=== PATIENT | female | born 1970 | race Caucasian/White ===

== ENCOUNTER 2018-08-31 18:04 | Emergency (ER) | payer OTHER, MEDICAID ==
[~2018-08-31] VITALS: Ht 157.5 cm; Wt 90.7 kg
[~2018-08-31 18:04] MED LIST: CLON2TAB6; DULO20CA; HYDR500T13; OMEP20TA44; PRO10T; TEMA7.5C11
[2018-08-31 20:12] LABS: Basophils # (auto) 0.1 uL; Basophils % (auto) 0.6 % (0.0-2.0); Eosinophils # (auto) 0.2 uL; Eosinophils % (auto) 1.6 % (0.0-7.0); Hematocrit 45.3 % (36.0-46.0); Hemoglobin 15.4 g/dL (12.2-16.2); Lymphocytes # (auto) 4.8 uL; Lymphocytes % (auto) 36.7 % (10.0-50.0); Mean Corpuscular Hemoglobin 31.3 pg (28.0-32.0); Monocytes # (auto) 1.4 uL; Monocytes % (auto) 10.8 % (0.0-12.0); Neutrophils # (auto) 6.6 uL; Neutrophils % (auto) 50.3 % (37.0-80.0); Nucleated Red Blood Cells % 0.1 %; Platelet Count (auto) 343 10^3/uL (140-450); Red Blood Cells 4.92 10^6/uL (4.0-5.20); Red Cell Distribution Width 13.2 % (11.8-14.3)
[2018-08-31 20:29] LABS: Albumin 4.2 g/dL (3.4-5.0); Anion Gap 11 (5-15); Blood Urea Nitrogen 15 mg/dL (7-18); Calcium 8.8 mg/dL (8.5-10.1); Carbon Dioxide 20 mmol/L (21-32); Chloride 111 mmol/L (98-107); Glucose 137 mg/dL (74-106); Salicylate 8.7 mg/dL (2.8-20.0); Sodium 142 mmol/L (136-145)
[2018-08-31 20:31] LABS: Alanine Aminotransferase 18 U/L (13-56); Aspartate Aminotransferase 12 U/L (15-37); Blood Alcohol < 3.0 mg/dL (0-5); GFR African American 87 mL/min; GFR Non-African American 72 mL/min
[2018-08-31 20:34] LABS: Alkaline Phosphatase 97 U/L (45-117); Bilirubin, Total 1.3 mg/dL (0.2-1.0); Total Protein 8.4 g/dL (6.4-8.2)
[2018-08-31 20:42] LABS: Potassium 2.9 mmol/L (3.5-5.1)
[2018-08-31 20:49] LABS: Acetaminophen < 2.0 ug/mL (10-30)
[2018-08-31] MEDS ORDERED: POTASSIUM CHL 20 Meq TABLET PO ONE (21:00)
[2018-08-31] MEDS ORDERED: POTASSIUM CHL 20MEQ/100ML 100 ML IV ONE (21:15)
[2018-09-01] MEDS ORDERED: clonazePAM 0.5 MG TAB PO ONE ×3 (01:30→10:45)
[2018-09-01 01:37] LABS: BUN/Creatinine Ratio 19.2; Calcium 8.6 mg/dL (8.5-10.1)
[2018-09-01 01:40] LABS: Bilirubin, Total 1.3 mg/dL (0.2-1.0); Total Protein 8.2 g/dL (6.4-8.2)
[2018-09-01] MEDS ORDERED: SODIUM CHLORIDE 0.9% 1,000 ML IV ONE (02:45)
[2018-09-01 07:18] LABS: Albumin 3.5 g/dL (3.4-5.0); BUN/Creatinine Ratio 15.6; Calcium 8.1 mg/dL (8.5-10.1); Potassium 3.9 mmol/L (3.5-5.1)
[2018-09-01 07:21] LABS: Bilirubin, Total 0.9 mg/dL (0.2-1.0); Total Protein 7.4 g/dL (6.4-8.2)
[2018-09-01 07:31] LABS: Alcohol, Urine < 3.0 mg/dL (0-5); Amphetamine Screen, Urine NEGATIVE (NEGATIVE); Barbiturate Scree,Urine NEGATIVE (NEGATIVE); Benzodiazephine Screen, Urine POSITIVE (NEGATIVE); Cannabinoid Screen, Urine POSITIVE (NEGATIVE); Cocaine Screen, Urine NEGATIVE (NEGATIVE); Opiate Scree,Urine NEGATIVE (NEGATIVE); Phencyclidine Screen, Urine NEGATIVE (NEGATIVE)
[2018-09-01 07:48] LABS: Urine Bacteria MOD /hpf (None Seen); Urine Blood Negative /uL (Negative); Urine Budding Yeast OCCASIONAL /hpf (None Seen); Urine Specific Gravity 1.037 (1.001-1.035); Urine WBC 13 /hpf (0 - 5)
[2018-09-01] MEDS ORDERED: ACETAMINOPHEN 325 MG TAB PO ONE (10:45)
[2018-09-01 11:16] VITALS: BP 115/76
== END 2018-09-01 13:11 | disposition home or self-care (01) ==
LOC: EDBD 18:04 → ER 18:09
DX: T42.8X2A Poisoning by antiparkinsonism drugs and other central muscle-tone depressants, intentional self-harm, initial encounter (principal); S61.512A Laceration without foreign body of left wrist, initial encounter; S61.511A Laceration without foreign body of right wrist, initial encounter; E87.6 Hypokalemia; F32.9 Major depressive disorder, single episode, unspecified; F17.210 Nicotine dependence, cigarettes, uncomplicated; F12.10 Cannabis abuse, uncomplicated; E78.5 Hyperlipidemia, unspecified; W45.8XXA Other foreign body or object entering through skin, initial encounter; Y93.89 Activity, other specified; Y92.89 Other specified places as the place of occurrence of the external cause; Y99.8 Other external cause status
CPT/HCPCS: 36415; 80053; 80307; 80320; 80329; 81001; 85025; 93005; 94761; 96365; 96366; 99284; J3480; J7030

== ENCOUNTER 2019-11-03 02:20 | Inpatient (IN) | payer OTHER, MEDICAID ==
[~2019-11-03] VITALS: Ht 162.6 cm; Wt 113.1 kg
[~2019-11-03 02:20] MED LIST changes: +CLON-707; -CLON2TAB6
[2019-11-03] MEDS ORDERED: ALBUTEROL SULF 2.5 MG/0.5ML(0.5%) NEB SOLN HHN ONE (04:00)
[2019-11-03] MEDS ORDERED: IPRATROPIUM BROM 0.5 MG/2.5ML INH SOL NEB ONE (04:00)
[2019-11-03] MEDS ORDERED: IPRATROPIUM BROM 0.5 MG/2.5ML INH SOL HHN ONE (04:00)
[2019-11-03] MEDS ORDERED: ALBUTEROL SULF 2.5 MG/0.5ML(0.5%) NEB SOLN NEB ONE (04:00)
[2019-11-03] MEDS ORDERED: methylPREDNISolone SOD SUCC 125 MG/2 ML VL IM ONE ×2 (04:00)
[2019-11-03] MEDS ORDERED: IBUPROFEN 800 MG TAB PO ONE ×2 (05:07→05:15)
[2019-11-03] MEDS ORDERED: LOPERAMIDE HCL 2 MG CAP PO ONE (05:15)
[2019-11-03 05:57] LABS: Basophils # (auto) 0.1 uL; Basophils % (auto) 0.7 % (0.0-2.0); Eosinophils # (auto) 0.2 uL; Eosinophils % (auto) 1.4 % (0.0-7.0); Hematocrit 42.9 % (36.0-46.0); Hemoglobin 14.1 g/dL (12.2-16.2); Lymphocytes # (auto) 4.4 uL; Lymphocytes % (auto) 36.8 % (10.0-50.0); Mean Corpuscular Hemoglobin 29.7 pg (28.0-32.0); Mean Corpuscular Volume 90.2 fL (80.0-100.0); Monocytes # (auto) 1.1 uL; Monocytes % (auto) 9.3 % (0.0-12.0); Neutrophils # (auto) 6.3 uL; Neutrophils % (auto) 51.8 % (37.0-80.0); Nucleated Red Blood Cells % 0.2 %; Platelet Count (auto) 394 10^3/uL (140-450); Red Blood Cells 4.76 10^6/uL (4.0-5.20); White Blood Cell 12.1 10^3/uL (4.4-10.8)
[2019-11-03 06:22] LABS: Albumin 3.5 g/dL (3.4-5.0); Anion Gap 8 (5-15); Blood Urea Nitrogen 10 mg/dL (7-18); Calcium 9.2 mg/dL (8.5-10.1); Carbon Dioxide 20 mmol/L (21-32); Chloride 112 mmol/L (98-107); Glucose 138 mg/dL (74-106); Sodium 140 mmol/L (136-145)
[2019-11-03 06:23] LABS: Lactic Acid w/Reflex 2.4 mmol/L (0.4-2.0)
[2019-11-03 06:27] LABS: Alanine Aminotransferase 14 U/L (13-56); Alkaline Phosphatase 73 U/L (45-117); Aspartate Aminotransferase 11 U/L (15-37); Bilirubin, Total 0.4 mg/dL (0.2-1.0); GFR African American 84 mL/min; GFR Non-African American 69 mL/min; Total Protein 8.2 g/dL (6.4-8.2)
[2019-11-03 06:31] LABS: Potassium 2.9 mmol/L (3.5-5.1)
[2019-11-03] MEDS ORDERED: POTASSIUM EFFERVESENT TAB 25 MEQ PO ONE (06:45)
[2019-11-03] MEDS ORDERED: SODIUM CHLORIDE 0.9% 1,000 ML IV ONE (06:46)
[2019-11-03] MEDS ORDERED: POTASSIUM CHL 20MEQ/100ML 100 ML IV ONE (07:00)
[2019-11-03] MEDS ORDERED: VANCOMYCIN PER PHARMACY 1,000 MG IV SCH (07:00)
[2019-11-03] MEDS ORDERED: IOHEXOL 350 MG/ML 100ML IJ ONE (07:12)
[2019-11-03] MEDS ORDERED: HYDROcodone-ACET 5/325MG TAB PO ONE (08:45)
[2019-11-03] MEDS ORDERED: MORPHINE SULF INJ 2 MG/ML SYRINGE 1ML IV PRN ×2 (09:30)
[2019-11-03] MEDS ORDERED: ACETAMINOPHEN 500 MG TAB PO PRN (09:30)
[2019-11-03] MEDS ORDERED: METHOCARBAMOL 500 MG TAB PO PRN (09:30)
[2019-11-03] MEDS ORDERED: NITROGLYCERIN 0.4 MG SL TAB SL PRN (09:30)
[2019-11-03] MEDS ORDERED: ONDANSETRON HCL 4 MG/2 ML VIAL IV PRN (09:30)
[2019-11-03] MEDS: SOD CHL 0.9%/ KCL 20MEQ 1,000 ML IV SCH ×2 (10:00→19:30)
[2019-11-03 10:13] LABS: Cholesterol 120 mg/dL (< 200)
[2019-11-03 10:15] LABS: HDL Cholesterol 17 mg/dL (40-59); LDL Cholesterol 66 mg/dL (< 100); Triglycerides 295 mg/dL (< 150)
[2019-11-03 10:24] VITALS: BP 121/62
[2019-11-03] MEDS: VENLAFAXINE HCL 37.5mg XR cap PO SCH (10:27)
[2019-11-03] MEDS: FAMOTIDINE 20 MG TAB PO SCH (10:27)
[2019-11-03 10:56] VITALS: BP 129/72
--- NOTE | 2019-11-03 11:00 | NUR ---
Telemetry admit from ER MARCIAL GUTIERREZ admitted to Telemetry unit after SBAR received. Patient oriented to VIRGINIA GRANADO, primary RN, unit, room, bed, and unit policies regarding patient care and visiting hours. Patient now on continuous telemetry monitoring, tele box # 41 and telemetry reading on arrival to unit is . Patient placed on bedside oxygen, weighed by bed scale and encouraged to call if they need something. All questions and concerns addressed, patient verbalized understanding.
--- NOTE | 2019-11-03 11:05 | NUR ---
FLU A AND B SENT TO LAB.
--- NOTE | 2019-11-03 11:30 | NUR ---
Patient has all her home meds in her bag, explained to the patient that all meds have to leave at the pharmacy per protocol. She said her father is going to visit her today and will take them home. Again emphasized to the patient that she cannot leave meds here, she verbalized understanding.
[2019-11-03] MEDS: BUDESONIDE (INHALATION) 0.5 MG/2 ML NEB NEB SCH ×2 (11:36→18:38)
[2019-11-03] MEDS: ALBUTEROL SULF 2.5 MG/0.5ML(0.5%) NEB SOLN NEB SCH ×2 (11:36→18:38)
[2019-11-03] MEDS: IPRATROPIUM BROM 0.5 MG/2.5ML INH SOL NEB SCH ×2 (11:36→18:38)
[2019-11-03] MEDS ORDERED: PRO10T PO (11:58)
[2019-11-03] MEDS ORDERED: CETI10TA80 PO (11:58)
[2019-11-03] MEDS ORDERED: CLON0.1T PO (11:58)
[2019-11-03] MEDS ORDERED: IBUP800T24 PO (11:58)
[2019-11-03] MEDS ORDERED: HYDR-4833 PO (11:58)
[2019-11-03] MEDS ORDERED: METH750T3 PO (11:58)
[2019-11-03] MEDS ORDERED: VENL75TA PO (11:58)
[2019-11-03] MEDS ORDERED: ATOR20TA PO (11:58)
[2019-11-03] MEDS ORDERED: OME20T PO (11:58)
[2019-11-03] MEDS: levoFLOXacin 500MG 100 ML IV SCH (12:01)
[2019-11-03] MEDS ORDERED: ERGO1CAP23 PO (12:16)
[2019-11-03] MEDS ORDERED: CLON1TAB10 PO (12:42)
--- NOTE | 2019-11-03 12:54 | NUR ---
Patient wants all her home meds, spoke to Jackson BERGER, received new orders, noted and carried it out.
[2019-11-03 13:00] VITALS: BP 142/82
[2019-11-03] MEDS ORDERED: clonazePAM 0.5 MG TAB PO ONE (13:00)
[2019-11-03] MEDS ORDERED: cloNIDine HCL 0.1 MG TAB PO ONE (13:00)
[2019-11-03] MEDS: HYDROcodone-ACET 5/325MG TAB PO PRN ×2 (14:13→20:53)
[2019-11-03] MEDS: PIPERACILLIN-TAZOB 3.375GM 100 ML IV SCH ×2 (14:16→18:07)
[2019-11-03 14:22] LABS: Urine Bacteria FEW /hpf (None Seen); Urine Blood Negative /uL (Negative); Urine Specific Gravity 1.033 (1.001-1.035); Urine WBC 1 /hpf (0 - 5)
[2019-11-03] MEDS: metroNIDAZOLE 500MG/100ML 100 ML IV SCH ×2 (16:22→23:17)
[2019-11-03 17:00] VITALS: BP 144/82
--- NOTE | 2019-11-03 19:22 | NUR ---
Opening Shift Note Received report and assumed care of patient. Patient is awake and alert. No signs or symptoms of distress noted. Family at bedside. Instructed patient on plan of care and to call for assistance as needed. Will continue to monitor.
--- NOTE | 2019-11-03 19:36 | NUR ---
IV removal/insertion Patient discontinued 20g IV to the left forearm. Catheter tip fully intact. Pressure dressing applied to site. NOTE: Inserted 22g IV to the right wrist. Patient tolerated well.
[2019-11-03] MEDS: clonazePAM 0.5 MG TAB PO SCH (22:00)
[2019-11-03 22:41] VITALS: BP 156/86
[2019-11-03] MEDS: ATORVASTATIN 20 MG TAB PO SCH (23:18)
[2019-11-04] MEDS: PIPERACILLIN-TAZOB 3.375GM 100 ML IV SCH ×2 (01:01→07:28)
[2019-11-04 01:06] VITALS: BP 149/86
[2019-11-04 05:18] VITALS: BP_SYST 110; BP_SYST 137; BP_DIAS 67; BP_DIAS 85
[2019-11-04] MEDS: metroNIDAZOLE 500MG/100ML 100 ML IV SCH ×3 (05:26→22:18)
[2019-11-04] MEDS: SOD CHL 0.9%/ KCL 20MEQ 1,000 ML IV SCH (05:28)
[2019-11-04] MEDS: ALBUTEROL SULF 2.5 MG/0.5ML(0.5%) NEB SOLN NEB SCH ×4 (07:50→23:18)
[2019-11-04] MEDS: IPRATROPIUM BROM 0.5 MG/2.5ML INH SOL NEB SCH ×4 (07:50→23:18)
[2019-11-04] MEDS: BUDESONIDE (INHALATION) 0.5 MG/2 ML NEB NEB SCH ×2 (07:51→23:18)
[2019-11-04 09:00] VITALS: BP 149/77
[2019-11-04] MEDS: levoFLOXacin 500MG 100 ML IV SCH (09:16)
[2019-11-04] MEDS: FAMOTIDINE 20 MG TAB PO SCH (09:16)
[2019-11-04] MEDS: clonazePAM 0.5 MG TAB PO SCH ×2 (09:16→22:00)
[2019-11-04] MEDS: VENLAFAXINE HCL 37.5mg XR cap PO SCH (09:16)
[2019-11-04] MEDS: cloNIDine HCL 0.1 MG TAB PO SCH (09:17)
[2019-11-04] MEDS: HYDROcodone-ACET 5/325MG TAB PO PRN ×2 (09:17→22:26)
[2019-11-04 09:55] LABS: Basophils # (auto) 0 uL; Basophils % (auto) 0.2 % (0.0-2.0); Eosinophils # (auto) 0 uL; Eosinophils % (auto) 0.1 % (0.0-7.0); Hematocrit 37.3 % (36.0-46.0); Hemoglobin 12.5 g/dL (12.2-16.2); Lymphocytes # (auto) 1.6 uL; Lymphocytes % (auto) 14.7 % (10.0-50.0); Mean Corpuscular Hemoglobin 30.3 pg (28.0-32.0); Mean Corpuscular Hgb Conc. 33.5 g/dL (32.0-36.0); Mean Corpuscular Volume 90.3 fL (80.0-100.0); Monocytes # (auto) 0.9 uL; Monocytes % (auto) 8.3 % (0.0-12.0); Neutrophils # (auto) 8.4 uL; Neutrophils % (auto) 76.7 % (37.0-80.0); Platelet Count (auto) 381 10^3/uL (140-450); Red Blood Cells 4.13 10^6/uL (4.0-5.20)
[2019-11-04 10:14] LABS: BUN/Creatinine Ratio 16.7; Calcium 8.6 mg/dL (8.5-10.1); Potassium 3.9 mmol/L (3.5-5.1)
[2019-11-04] MEDS ORDERED: NICOTINE 14 MG/24HR TOPICAL PATCH TD ONE (10:30)
[2019-11-04] MEDS ORDERED: FUROSEMIDE 20 MG/2 ML VIAL IV ONE (10:30)
[2019-11-04 12:30] VITALS: BP 135/88
[2019-11-04] MEDS: methylPREDNISolone SOD SUCC 40 MG/ML VL IV SCH ×2 (13:52→22:18)
[2019-11-04 16:45] VITALS: BP 150/73
--- NOTE | 2019-11-04 19:34 | NUR ---
Opening Shift Note Received report and assumed care of patient. Patient is awake and alert. No signs or symptoms of distress noted, patient currently denies pain. Instructed patient on plan of care and to call for assistance as needed. Will continue to monitor.
--- NOTE | 2019-11-04 20:02 | NUR ---
IV removal/insertion 22g IV to the Right wrist reddened. Discontinued IV with clean technique, catheter tip fully intact. Pressure dressing applied to site. NOTE: Inserted 22g IV to the Left forearm. Patient tolerated procedure well.
[2019-11-04 22:00] VITALS: BP 142/69
[2019-11-04] MEDS: FUROSEMIDE 20 MG/2 ML VIAL IV SCH (22:00)
[2019-11-04] MEDS: ATORVASTATIN 20 MG TAB PO SCH (22:18)
[2019-11-05] MEDS: ALBUTEROL SULF 2.5 MG/0.5ML(0.5%) NEB SOLN NEB SCH ×6 (02:34→22:17)
[2019-11-05] MEDS: IPRATROPIUM BROM 0.5 MG/2.5ML INH SOL NEB SCH ×6 (02:34→22:17)
--- NOTE | 2019-11-05 02:34 | NUR ---
RT NOTE PT ASKED NOT TO BE WOKEN FOR THIS SCHEDULED TX IF SLEEPING. PT IS SLEEPING. TX HELD PER PT REQUEST. PT AWARE TO HAVE RT PAGED IF TX NEEDED WHEN THEY WAKE. RT NAME AND PAGER NUMBER ON PT BOARD.
--- NOTE | 2019-11-05 02:49 | NUR ---
Bradycardia Patient heart rate bradycardic in 40s. Patient responsive, awakens to voice and denies symptoms. Paged Hospitalist. No new orders at this time. Will continue to monitor.
[2019-11-05 05:00] VITALS: BP 155/86
[2019-11-05] MEDS: metroNIDAZOLE 500MG/100ML 100 ML IV SCH (05:45)
[2019-11-05] MEDS: methylPREDNISolone SOD SUCC 40 MG/ML VL IV SCH ×2 (05:45→22:51)
--- NOTE | 2019-11-05 06:30 | NUR ---
PT. REFUSED MN. TX. AT THIS TIME. PT. STATES THAT SHE IS EXHAUSTED AND DIDN'T SLEEP WELL LAST NIGHT. NO RESP. DISTRESS NOTED, BS. ARE DIMINISHED BILAT., HR=46,RR=18,SP02=96% ON 2LPM NC. PT. STATES SHE WILL TAKE NEXT SCHEDULED TX.. NO RESP. DISTRESS OR SOB NOTED. NOC RN. INFORMED OF PT'S REFUSAL.
[2019-11-05 09:00] VITALS: BP 136/90
--- NOTE | 2019-11-05 09:03 | NUR ---
Opening Shift Note Assumed care of patient, awake and alert. Respiratory even and unlabored. No S/S of distress/SOB or pain. Skin is warm and dry to touch. Instructed on POC and to call for assist PRN, will continue to monitor for changes Q1hr and PRN.
[2019-11-05 09:34] LABS: Basophils # (auto) 0.1 uL; Basophils % (auto) 0.9 % (0.0-2.0); Eosinophils # (auto) 0 uL; Hematocrit 43.8 % (36.0-46.0); Hemoglobin 14.5 g/dL (12.2-16.2); Lymphocytes % (auto) 9.4 % (10.0-50.0); Mean Corpuscular Hemoglobin 30.2 pg (28.0-32.0); Mean Corpuscular Volume 91.6 fL (80.0-100.0); Monocytes # (auto) 0.2 uL; Monocytes % (auto) 2.1 % (0.0-12.0); Neutrophils # (auto) 9.7 uL; Neutrophils % (auto) 87.6 % (37.0-80.0); Platelet Count (auto) 410 10^3/uL (140-450); Red Blood Cells 4.78 10^6/uL (4.0-5.20); Red Cell Distribution Width 14.3 % (11.8-14.3); White Blood Cell 11.1 10^3/uL (4.4-10.8)
[2019-11-05] MEDS: levoFLOXacin 500MG 100 ML IV SCH (09:34)
[2019-11-05] MEDS: FAMOTIDINE 20 MG TAB PO SCH (09:37)
[2019-11-05] MEDS: FUROSEMIDE 20 MG/2 ML VIAL IV SCH (09:38)
[2019-11-05] MEDS: VENLAFAXINE HCL 37.5mg XR cap PO SCH (09:38)
[2019-11-05] MEDS: cloNIDine HCL 0.1 MG TAB PO SCH (09:38)
[2019-11-05] MEDS: clonazePAM 0.5 MG TAB PO SCH ×2 (09:38→22:51)
[2019-11-05 09:39] LABS: INR 1.02 (0.9-1.15); Partial Thromboplastin Time 28.2 sec (23.64-32.05)
[2019-11-05] MEDS: NICOTINE 14 MG/24HR TOPICAL PATCH TD SCH (09:39)
[2019-11-05 09:40] LABS: Albumin 3.6 g/dL (3.4-5.0); Calcium 9.7 mg/dL (8.5-10.1); Magnesium 2.7 mg/dL (1.6-2.6); Potassium 4.5 mmol/L (3.5-5.1)
[2019-11-05 09:44] LABS: BUN/Creatinine Ratio 21.8; Bilirubin, Total 0.3 mg/dL (0.2-1.0); Phosphorus 2.8 mg/dL (2.5-4.90); Total Protein 8.2 g/dL (6.4-8.2)
[2019-11-05] MEDS: HYDROcodone-ACET 5/325MG TAB PO PRN ×3 (09:51→23:47)
[2019-11-05] MEDS ORDERED: FUROSEMIDE 20 MG/2 ML VIAL IV SCH (10:00)
[2019-11-05] MEDS ORDERED: ENOXAPARIN SOD 40 MG/0.4 ML SYRINGE SC SCH (10:00)
[2019-11-05] MEDS: BUDESONIDE (INHALATION) 0.5 MG/2 ML NEB NEB SCH ×2 (10:11→18:55)
[2019-11-05 12:30] VITALS: BP 105/62
--- NOTE | 2019-11-05 13:45 | NUR ---
Dr. Frias made aware of patient's HR down to 48, asymptomatic.
[2019-11-05 17:00] VITALS: BP 122/73
--- NOTE | 2019-11-05 19:05 | NUR ---
OPENING NOTE- NOC SHIFT PATIENT IS ALERT AND ORIENTED X4. NO S/SX OF DISTRESS OR SOB. PATIENT IS ON ROOM AIR SAT O2 IS 96%. DISCUSSED POC WITH PATIENT AND INSTRUCTED PATIENT TO CALL PRN. BED IS LOCKED AT LOWEST, CALL LIGHT WITHIN REACH, BEDSIDE TABLE WITHIN REACH, BED RAILS UP X2 AND HEAD OF BED IS UP>30 DEGREES FOR SAFETY PRECAUTION. WILL CONTINUE TO MONITOR Q1H AND PRN.
[2019-11-05 21:59] VITALS: BP 134/90
[2019-11-05] MEDS: ATORVASTATIN 20 MG TAB PO SCH (22:51)
[2019-11-06] VITALS (7 sets, daily range): BP systolic 128–142; BP diastolic 60–97
--- NOTE | 2019-11-06 00:31 | NUR ---
CLOSING NOTE- 6 HR SHIFT NOC PATIENT IS COMFORTABLE IN BED. PATIENT COMPLAINED OF GENERALIZED BODY PAIN AND HEADACHE DURING THE SHIFT. PAIN MEDICATION WAS GIVEN. NO S/SX OF DISTRESS OR SOB. PATIENT ON ROOM AIR. WILL GIVE REPORT TO RELIEVING NURSE JAREK ARNOLD.
[2019-11-06] MEDS: ALBUTEROL SULF 2.5 MG/0.5ML(0.5%) NEB SOLN NEB SCH ×4 (02:00→14:50)
[2019-11-06] MEDS: IPRATROPIUM BROM 0.5 MG/2.5ML INH SOL NEB SCH ×4 (02:00→14:50)
--- NOTE | 2019-11-06 02:00 | NUR ---
PT REFUSED MN TX AT THIS TIME, WANTS TO SLEEP. NO SOB NOTED
--- NOTE | 2019-11-06 07:00 | NUR ---
Respiratory note: SCHEDULED MED NEB TX NOT GIVEN. PATIENT WAS AWAKE AND ALERT, COMPLAINING OF A STOMACH ACHE. NO RESP DISTRESS NOTED. RN AWARE AND AT BEDSIDE. HR 58, RR 18, SPO2 96% ON ROOM AIR. BS ARE CLEAR T/O. PATIENT STATED SHE WILL TAKE THE NEXT SCHEDULED TX.
--- NOTE | 2019-11-06 07:15 | NUR ---
PATIENT IS COMPLAINING OF HAVING A RUNNY BOWEL MOVEMENT . CLEO DUBOIS MD.
[2019-11-06] MEDS: methylPREDNISolone SOD SUCC 40 MG/ML VL IV SCH (08:34)
[2019-11-06] MEDS: cloNIDine HCL 0.1 MG TAB PO SCH (08:35)
[2019-11-06] MEDS: levoFLOXacin 500MG 100 ML IV SCH (08:35)
[2019-11-06] MEDS: clonazePAM 0.5 MG TAB PO SCH (08:36)
[2019-11-06] MEDS: FAMOTIDINE 20 MG TAB PO SCH (08:36)
[2019-11-06] MEDS: VENLAFAXINE HCL 37.5mg XR cap PO SCH (08:36)
[2019-11-06] MEDS: HYDROcodone-ACET 5/325MG TAB PO PRN (08:37)
[2019-11-06] MEDS: NICOTINE 14 MG/24HR TOPICAL PATCH TD SCH (08:39)
--- NOTE | 2019-11-06 09:24 | NUR ---
PATIENT C/O BURNING AT IV SITE. IV SITE IS INTACT. WILL CONTINUE TO MONITOR.
[2019-11-06] MEDS: BUDESONIDE (INHALATION) 0.5 MG/2 ML NEB NEB SCH (10:36)
--- NOTE | 2019-11-06 10:36 | NUR ---
Respiratory note: SCHEDULED MED NEB TX NOT GIVEN. PT WAS ASLEEP AND DID NOT WANT TX AT THIS TIME. NO RESP DISTRESS NOTED.
--- NOTE | 2019-11-06 14:14 | NUR ---
NUTRITION ASSESSMENT NOTES Please refer to link notes of nutrition screen form filed under the intervention section of the plan of care for further details. Est. Needs based on AdBW (69 kg): 1400 kcal to 1750 kcal (20-25 kcal/kgAdBW), 69 gms to 83 gms pro (1.0-1.2 gms/kgAdBW). Will continue to monitor pertinent labs and reassess nutrient need prn Thank you. Addendum: 11/06/19 at [address] Amended: Links added.
--- NOTE | 2019-11-06 16:50 | NUR ---
PATIENT IS REFUSING INCENTIVE SPIROMETRY. PATIENT EDUCATED ON IMPORTANCE OF IS ORDER. PATIENT STATES, "I DON'T WANT IT", " I WANT TO GO ".
--- NOTE | 2019-11-06 17:02 | NUR ---
Discharge instructions given as ordered. Encourage to follow up with PMD as instructed. All questions and concerns addressed. Patient verbalized understanding. Medication reconciliation form completed and copy given to patient. IV removed with catheter intact, pressure dressing applied. Patient ambulated to vehicle with all personal belongings, accompanied by staff and family member. No distress noted at time of departure.
== END 2019-11-06 17:00 | disposition home or self-care (01) | DRG 392 ==
LOC: EDBD 02:20 → ER 02:24 → TELE 02:25 → TELE-CENTR 10:52 → CENTRAL 11-05 14:17
PROVIDERS: ADMIT Nurse Practitioner Acute Care; ATTEND Internal Medicine
DX: K52.9 Noninfective gastroenteritis and colitis, unspecified (principal); J44.1 Chronic obstructive pulmonary disease with (acute) exacerbation; Z68.42 Body mass index [BMI] 45.0-49.9, adult; J44.0 Chronic obstructive pulmonary disease with (acute) lower respiratory infection; E87.6 Hypokalemia; E78.5 Hyperlipidemia, unspecified; F32.9 Major depressive disorder, single episode, unspecified; I10 Essential (primary) hypertension; E78.00 Pure hypercholesterolemia, unspecified; F17.210 Nicotine dependence, cigarettes, uncomplicated; K21.9 Gastro-esophageal reflux disease without esophagitis; M54.5 Low back pain; E66.01 Morbid (severe) obesity due to excess calories; F41.9 Anxiety disorder, unspecified; G89.29 Other chronic pain; Z90.49 Acquired absence of other specified parts of digestive tract
CPT/HCPCS: 36415; 36600; 71045; 71275; 74176; 80048; 80053; 80061; 81001; 82805; 83605; 83735; 83880; 84100; 84443; 84484; 85025; 85379; 85384; 85610; 85730; 87040; 87045; 87086; 87427; 87804; 93005; 94640; 96361; 96365; 96367; 96372; G0378; J1956; J2543; J3480; J3490

== ENCOUNTER → 2022-02-08 | Emergency (ER) | payer OTHER, MEDICAID ==
[~2022-02-08] VITALS: Ht 160 cm; Wt 113.4 kg
[~2022-02-08] MED LIST changes: +ATOR20TA PO; +CETI10TA2 PO; -CLON-707; +CLON-853 PO; +CLON0.1T PO; -DULO20CA; +ERGO1CAP23 PO; +HYDR-4833 PO; -HYDR500T13; +HYDROcodone-ACET 7.5/325MG TAB PO ONE; +OME20T PO; -OMEP20TA44; -PRO10T; -TEMA7.5C11; +VENL1TAB99 PO
[2022-02-08 14:41] VITALS: BP 144/83
== END | disposition home or self-care (01) ==
LOC: ER 13:59
DX: S52.502A Unspecified fracture of the lower end of left radius, initial encounter for closed fracture (principal); S52.602A Unspecified fracture of lower end of left ulna, initial encounter for closed fracture; S92.152A Displaced avulsion fracture (chip fracture) of left talus, initial encounter for closed fracture; E78.5 Hyperlipidemia, unspecified; I10 Essential (primary) hypertension; F17.210 Nicotine dependence, cigarettes, uncomplicated; F12.10 Cannabis abuse, uncomplicated; W10.8XXA Fall (on) (from) other stairs and steps, initial encounter; Y93.89 Activity, other specified; Y92.89 Other specified places as the place of occurrence of the external cause; Y99.8 Other external cause status
CPT/HCPCS: 29125; 73110; 73130; 73610; 73630

== ENCOUNTER 2024-09-01 23:15 | Inpatient (IN) | payer OTHER, MEDICAID ==
[~2024-09-01] VITALS: Ht 160 cm; Wt 96.3 kg
[2024-09-01] MEDS: SODIUM CHLORIDE 0.9% 1,000 ML IV ONE
[~2024-09-01 23:15] MED LIST changes: -HYDROcodone-ACET 7.5/325MG TAB PO ONE
[2024-09-02] VITALS (7 sets, daily range): BP systolic 112–149; BP diastolic 46–72; PULSE 50–70; RESP 14–20; TEMP 98–98.7; O2SAT 92–98
[2024-09-02 00:01] LABS: Basophils # (auto) 0.1 10 ^3/uL (0-0.2); Basophils % (auto) 0.4 % (0.0-2.0); Eosinophils # (auto) 0 10 ^3/uL (0-0.8); Hemoglobin 17.7 g/dL (12.2-16.2); Lymphocytes # (auto) 2.7 10 ^3/uL (0.4-5.4); Monocytes # (auto) 1.1 10 ^3/uL (0-1.3); Platelet Count (auto) 419 10^3/uL (140-450)
[2024-09-02 00:03] LABS: Hematocrit 51.8 % (36.0-46.0); Lymphocytes % (auto) 11.8 % (10.0-50.0); Mean Corpuscular Hemoglobin 30.6 pg (28.0-32.0); Mean Corpuscular Hgb Conc. 34.2 g/dL (32.0-36.0); Mean Corpuscular Volume 89.5 fL (80.0-100.0); Monocytes % (auto) 4.8 % (0.0-12.0); Neutrophils # (auto) 18.7 10 ^3/uL (1.6-8.6); Nucleated Red Blood Cells % 0.3 %; Red Blood Cells 5.79 10^6/uL (4.0-5.20); Red Cell Distribution Width 14.9 % (11.8-14.3); White Blood Cell 22.6 10^3/uL (4.4-10.8)
[2024-09-02] MEDS: ONDANSETRON HCL 4 MG/2 ML VIAL IV ONE (00:12)
[2024-09-02] MEDS: SODIUM CHLORIDE 0.9% 1,000 ML IV ONE (00:13)
[2024-09-02 00:15] LABS: INR 1.06 (0.9-1.15); Partial Thromboplastin Time 32.1 SEC (24.5-34.5); Prothrombin Time 11.2 sec (9.3-11.8)
--- NOTE | 2024-09-02 00:16 | ED.PDOC ---
History of Present Illness HPI Comments 54 y/o F, with a Hx of anxiety, depression, HLD, HTN, obesity, appendectomy, and polysubstance abuse, is BIBA for c/o chest and abdominal pain, shortness of breath, nausea, vomiting, and generalized bodyaches, today. Per EMS report, patient's father called on patient's behalf, due to patient, suddenly, endorsing symptoms, this evening following EtOH and marijuana intake, this evening. Patient was found on scene with all vitals stable and within normal limits, with exception of being hypotensive systolically in the 70's. Patient endorses on no medication use aside from Wellbutrin for her anxiety/depression. She denies having any palpitations, diarrhea, hematemesis, fever, chills, or other associated symptoms or modifiers at this time. Chief Complaint: Abdominal Pain Time Seen by MD: 23:35 Primary Care Provider: BAY Reviewed Notes: Nurses Notes, Ceramic Painter Notes, Medications, Allergies Allergies: Coded Allergies: NO KNOWN ALLERGIES (Unverified , 12/21/10) Home Meds Reported Medications Clonazepam (Clonazepam) 1 Mg Tab, 1 TAB PO BID, TAB 11/03/19 Ergocalciferol (VITAMIN D 27379 UNIT) 50,000 [place], [address] UNIT PO, CAP 11/03/19 Clonidine Hydrochloride (Clonidine Hcl) 0.1 Mg Tab, 0.3 MG PO DAILY, MG 11/03/19 Venlafaxine Hydrochloride (Venlafaxine Hcl) 75 Mg Tab, 1 TAB PO BID, TAB 11/03/19 Cetirizine Hcl (Kls Aller-Janak) 10 Mg Tab, 1 TAB PO DAILY, TAB 11/03/19 Atorvastatin Calcium (Lipitor) 20 Mg Tab, 1 TAB PO HS, TAB 1 Refill 11/03/19 Omeprazole (Omeprazole) 20 Mg Cap, 40 MG PO DAILY, CAP 11/03/19 Hydrocodone-Acetaminophen ([place] 5/325MG) 1 Tab Tb, 2 TAB PO Q6HP PRN for PAIN SCALE 1 THRU 6, TAB 11/03/19 Information Source: Patient, Emergency Med Personnel Mode of Arrival: EMS Past Medical History PAST MEDICAL HISTORY: Anxiety, Depression, High Lipids, HTN Past Medical History (Other): obesity Covid19 Surgical History: Appendectomy NUTTER UP History: Other (uterine tumor w/surgery) Family History Family History: Reviewed,noncontributory to illness Social History Smoker: Cigarettes Alcohol: Occasionally Drugs: Marijuana Lives In: Home All Other Systems: Reviewed and Negative (see HPI) Physical Exam General Appearance: No Apparent Distress, Obese, Other (alcohol breathe ) HEENT: Normal ENT Inspection, Pharynx Normal, TMs Normal, Other (severely dry oral mucosa) Neck: Full Range of Motion, Non-Tender, Normal, Normal Inspection Respiratory: Chest Non-Tender, Lungs Clear, No Accessory Muscle Use, No Respira tory Distress, Normal Breath Sounds Cardiovascular: No Edema, No JVD, No Murmur, No Gallop, Normal Peripheral Pulses, Regular Rate/Rhythm Breast Exam: Deferred Gastrointestinal: No Organomegaly, Non Tender, No Pulsatile Mass, Normal Bowel Sounds, Soft Genitalia: Deferred Pelvic: Deferred Rectal: Deferred Extremities: No calf tenderness, Normal capillary refill, Normal inspection, Normal range of motion, Non-tender, No pedal edema Musculoskeletal : Apperance: Normal Neurologic: Alert, [place] attorney II-XII nml as Tested, No Motor Deficits, Normal Affect, Normal Mood, No Sensory Deficits Cerebellar Function: Normal Reflexes: Normal Skin: Dry, Normal Color, Warm Lymphatic: No Adenopathy Was a procedure done? Was a procedure done?: No Differential Dx Considerations may include: EtOH intoxication, non-compliance, atypical chest pain, anxiety X-Ray, Labs, Meds, VS Vital Signs Date Time Temp Pulse Resp B/P (MAP) Pulse Ox O2 Delivery O2 Flow Rate FiO2 09/02/24 04:00 60 09/02/24 03:00 61 12 112/59 (76) 95 09/02/24 02:49 61 09/02/24 01:00 58 16 122/40 (67) 95 09/02/24 00:00 63 09/02/24 00:00 50 16 95 Nasal Cannula* 2 28 09/02/24 00:00 98.6 50 16 60/32 (41) 95 98.6 09/01/24 23:35 98.5 71 16 72/45 (54) 98 Lab Test 09/02/24 05:25 09/02/24 03:16 09/02/24 02:00 09/01/24 23:48 Range/Units White Blood Count 16.2 #H 22.6 H 4.4-10.8 10^3/uL Red Blood Count 5.29 H 5.79 H 4.0-5.20 10^6/uL Hemoglobin 16.0 17.7 H 12.2-16.2 g/dL Hematocrit 48.2 H 51.8 H 36.0-46.0 % Mean Corpuscular Volume 91.0 89.5 80.0-100.0 fL Mean Corpuscular Hemoglobin 30.3 30.6 28.0-32.0 pg Mean Corpuscular Hemoglobin Concent 33.3 34.2 32.0-36.0 g/dL Red Cell Distribution Width 14.6 H 14.9 H 11.8-14.3 % Platelet Count 330 419 140-450 10^3/uL Mean Platelet Volume 6.6 L 6.7 L 6.9-10.8 fL Neutrophils (%) (Auto) 79.0 83.0 H 37.0-80.0 % Lymphocytes (%) (Auto) 15.8 11.8 10.0-50.0 % Monocytes (%) (Auto) 4.9 4.8 0.0-12.0 % Eosinophils (%) (Auto) 0.0 0.0 0.0-7.0 % Basophils (%) (Auto) 0.3 0.4 0.0-2.0 % Neutrophils # (Auto) 12.8 H 18.7 H 1.6-8.6 10 ^3/uL Lymphocytes # (Auto) 2.6 2.7 0.4-5.4 10 ^3/uL Monocytes # (Auto) 0.8 1.1 0-1.3 10 ^3/uL Eosinophils # (Auto) 0 0 0-0.8 10 ^3/uL Basophils # (Auto) 0 0.1 0-0.2 10 ^3/uL Nucleated Red Blood Cells 0.1 0.3 % Urine Color Yellow Yellow Urine Clarity Turbid H Clear Urine pH 6.0 5.0-9.0 Urine Specific [place] 1.019 1.001-1.035 Urine Protein 1+ H Negative Urine Ketones Negative Negative Urine Blood Negative Negative /uL Urine Nitrite Negative Negative Urine Bilirubin Negative Negative Urine Urobilinogen Normal Negative mg/dL Urine Leukocyte Esterase Negative Negative /uL Urine RBC 2 0 - 4 /hpf Urine WBC 5 0 - 5 /hpf Urine Squamous Epithelial Cells Few <5 /hpf Urine Bacteria Few H None Seen /hpf Urine Hyaline Casts Many 0 - 2 /lpf Urine Mucus Few None Seen Urine Glucose Normal Normal mg/dL Urine Opiates Screen Neg NEGATIVE Urine Fentanyl Screen Neg NEGATIVE Urine Barbiturates Screen Neg NEGATIVE Urine Phencyclidine Screen Neg NEGATIVE Urine Amphetamines Screen Neg NEGATIVE Urine Benzodiazepines Screen Neg NEGATIVE Urine Cocaine Screen Neg NEGATIVE Urine Cannabinoids Screen Pos NEGATIVE Troponin I High Sensitivity 8 10 </=34 ng/L Prothrombin Time 11.2 9.3-11.8 sec Prothrombin Time INR 1.06 0.9-1.15 Activated Partial Thromboplast Time 32.1 24.5-34.5 SEC Sodium Level 140 136-145 mmol/L Potassium Level 3.5 3.5-5.1 mmol/L Chloride Level 108 H 98-107 mmol/L Carbon Dioxide Level 21 20-31 mmol/L Anion Gap 11 5-15 Blood Urea Nitrogen 14 9-23 mg/dL Creatinine 2.08 H 0.550-1.02 mg/dL Glomerular Filtration Rate Calc 27 >90 mL/min BUN/Creatinine Ratio 6.7 L 10.0-20.0 Serum Glucose 142 H 74-106 mg/dL Calcium Level 10.8 H 8.7-10.4 mg/dL Magnesium Level 2.3 1.6-2.6 mg/dL Total Bilirubin 0.5 0.2-1.0 mg/dL Aspartate Amino Transferase (AST) 14 13-40 U/L Alanine Aminotransferase (ALT) 10 7-40 U/L Alkaline Phosphatase 83 46-116 U/L Total Protein 7.6 5.7-8.2 g/dL Albumin 4.7 3.2-4.8 g/dL Plasma/Serum Blood Alcohol < 3.0 <10 mg/dL Current Medications Medications (Trade) Dose Ordered Sig/Isabel Route Start Time Stop Time Status Last Admin Sodium Chloride 1,000 ml @ 1,000 mls/hr Q1H ONCE IV 09/01/24 23:45 09/02/24 00:44 DC 09/02/24 00:13 Ondansetron HCl (Zofran) 4 mg ONCE ONCE IV 09/01/24 23:45 09/01/24 23:46 DC 09/02/24 00:12 Sodium Chloride 1,000 ml @ 150 mls/hr Q6H40M ONCE IV 09/01/24 23:45 09/02/24 06:24 09/01/24 00:00 Metoclopramide HCl (Reglan Injection) 5 mg ONCE ONCE IV 09/02/24 03:00 09/02/24 03:07 DC 09/02/24 03:[address] [address] Ph: [phone] DIAGNOSTIC IMAGING Diagnostic Imaging Report : [id number] Signed PATIENT: MARCIAL GUTIERREZ ACCT: [id number] UNIT: [id number] : 1970 LOC: ER ROOM / BED: / AGE / SEX: 54 / F ADM STATUS: REG ER SERVICE 31 ORDERING PHYSICIAN: DARYL AKINS MD PROCEDURE(s): CXRP - CHEST PORTABLE REASON: sob ORDER NUMBER(s): [id number], ACCESSION NUMBER(s): [id number] CHEST RADIOGRAPH Indication: sob Technique: Single frontal view of the chest was obtained Comparison: CHEST PORTABLE on DOS: 11/04/19, CHEST PORTABLE on DOS: 11/03/19 FINDINGS: Lines and Tubes: None Lungs: Clear Pleura: No effusion. No pneumothorax. Cardiomediastinal contours: Unremarkable Bones: Unremarkable IMPRESSION: 1. Clear lungs. ATED BY: ARUN BIRD DO DICTATED DATE/TIME: 09/02/24153 SIGNED BY: ARUN BIRD DO SIGNED DATE/TIME: 09/02/24153 CC: [address] [address] Ph: [phone] DIAGNOSTIC IMAGING Diagnostic Imaging Report : [id number] Signed PATIENT: MARCIAL GUTIERREZ ACCT: [id number] UNIT: [id number] : 1970 LOC: ER ROOM / BED: / AGE / SEX: 54 / F ADM STATUS: REG ER SERVICE 31 ORDERING PHYSICIAN: DARYL AKINS MD PROCEDURE(s): ABPL - CT AB PEL WO CON-NO ORAL OR IV REASON: abd pain ORDER NUMBER(s): [id number], ACCESSION NUMBER(s): [id number] Exam: CT CT AB PEL WO CON-NO ORAL OR IV History: abd pain Comparison Study: None available at time of dictation. Technique: Multidetector spiral CT of the abdomen was performed from lung bases to pubic symphysis. Imaging was performed without IV contrast. Axial, coronal and sagittal multiplanar reformats were obtained from the axial data set by the technologist. Radiation Dose : 1. Abdomen/Pelvis: CTDIvol 22 mGy, DLP 1216 mGy*cm. Findings: Evaluation of solid organs is limited due to lack of intravenous contrast use. Lung Bases: No acute or significant lung base finding. Normal heart size. No pleural or pericardial effusion. Liver: The liver is normal in size. No focal lesions. Gallbladder and Biliary Tree: Unremarkable Spleen: Unremarkable Pancreas: The pancreas is grossly normal in appearance. Adrenal Glands: Unremarkable Kidneys: Kidneys are grossly normal without calculi or hydronephrosis. Bladder: Grossly unremarkable for degree of distention. Bowel: The stomach is grossly normal in appearance. Small bowel and colon are normal in caliber and distribution. The appendix is not visualized; however, no secondary findings of acute appendicitis identified. Ascites: Absent Lymphadenopathy: No mesenteric, retroperitoneal or periportal lymphadenopathy. Abdominal Wall and Mesentery: Unremarkable. Vasculature: The visualized abdominal aorta is normal in size and caliber. Evaluation of abdominal and pelvic vessels is limited due to lack of intravenous contrast. Pelvic Organs: Bilateral Essure wires.. Musculoskeletal: Mild compression deformity of the superior endplate at L3 of unknown chronicity. No significant retropulsion. IMPRESSION: No acute abdominal or pelvic findings on this noncontrast evaluation. Ancillary findings as described above.. END IMPRESSION: ATED BY: ARUN BIRD DO DICTATED DATE/TIME: 09/02/24152 SIGNED BY: ARUN BIRD DO SIGNED DATE/TIME: 09/02/24152 CC: Time of 1ST Reevaluation: 00:05 Reevaluation 1ST: Unchanged Patient Education/Counseling: Diagnosis, Treatment Family Education/Counseling: No Family Present Departure 1 Departure Time of Disposition: 06:05 Impression: Primary Impression: Leukocytosis Qualified Codes: D72.829 - Elevated white blood cell count, unspecified Additional Impressions: Acute kidney injury Urinary tract infection Qualified Codes: N39.0 - Urinary tract infection, site not specified Critical Care Note Critical Care Time?: Yes (35 min-critical care time only) Stability Stability form required: No Heart Score Heart Score: Heart Score Response (Comments) Value History Slightly Suspicious 0 EKG N/A (patient refused ) 0 Age 45-64 1 Risk Factors No known risk factors 0 Troponin Normal limit 0 Total 1 I personally scribed for DARYL AKINS MD ([email or web address]) on 09/02/24 at 00:16. Electronically submitted by Vu Rodriguez ([email or web address]). I personally scribed for DARYL AKINS MD ([email or web address]) on 09/02/24 at 04:00. Electronically submitted by Vu Rodriguez [email or web address]). DARYL AKINS MD Sep 02, 2024 00:16
[2024-09-02 00:21] LABS: Alanine Aminotransferase 10 U/L (7-40); Albumin 4.7 g/dL (3.2-4.8); Alkaline Phosphatase 83 U/L (46-116); Anion Gap 11 (5-15); Aspartate Aminotransferase 14 U/L (13-40); BUN/Creatinine Ratio 6.7 (10.0-20.0); Bilirubin, Total 0.5 mg/dL (0.2-1.0); Blood Urea Nitrogen 14 mg/dL (9-23); Carbon Dioxide 21 mmol/L (20-31); Magnesium 2.3 mg/dL (1.6-2.6); Potassium 3.5 mmol/L (3.5-5.1); Sodium 140 mmol/L (136-145); Total Protein 7.6 g/dL (5.7-8.2)
[2024-09-02 00:25] LABS: Blood Alcohol < 3.0 mg/dL (<10); Calcium 10.8 mg/dL (8.7-10.4); Chloride 108 mmol/L (98-107); Glucose 142 mg/dL (74-106)
--- NOTE | 2024-09-02 01:55 | DVH ---
Exam: CT CT AB PEL WO CON-NO ORAL OR IV History: abd pain Comparison Study: None available at time of dictation. Technique: Multidetector spiral CT of the abdomen was performed from lung bases to pubic symphysis. Imaging was performed without IV contrast. Axial, coronal and sagittal multiplanar reformats were ob tained from the axial data set by the technologist. Radiation Dose : 1. Abdomen/Pelvis: CTDIvol 22 mGy, DLP 1216 mGy*cm. Findings: Evaluation of solid organs is limited due to lack of intravenous contrast use. Lung Bases: No acute or significant lung base finding. Normal heart size. No pleural or pericardial effusion. Liver: The liver is normal in size. No focal lesions. Gallbladder and Biliary Tree: Unremarkable Spleen: Unremarkable Pancreas: The pancreas is grossly normal in appearance. Adrenal Glands: Unremarkable Kidneys: Kidneys are grossly normal without calculi or hydronephrosis. Bladder: Grossly unremarkable for degree of distention. Bowel: The stomach is grossly normal in appearance. Small bowel and colon are normal in caliber and d istribution. The appendix is not visualized; however, no secondary findings of acute appendicitis id entified. Ascites: Absent Lymphadenopathy: No mesenteric, retroperitoneal or periportal lymphadenopathy. Abdominal Wall and Mesentery: Unremarkable. Vasculature: The visualized abdominal aorta is normal in size and caliber. Evaluation of abdominal a nd pelvic vessels is limited due to lack of intravenous contrast. Pelvic Organs: Bilateral Essure wires.. Musculoskeletal: Mild compression deformity of the superior endplate at L3 of unknown chronicity. No significant retropulsion. IMPRESSION: No acute abdominal or pelvic findings on this noncontrast evaluation. Ancillary findings as describe d above.. END IMPRESSION:
--- NOTE | 2024-09-02 01:57 | DVH ---
CHEST RADIOGRAPH Indication: sob Technique: Single frontal view of the chest was obtained Comparison: CHEST PORTABLE on DOS: 11/04/19, CHEST PORTABLE on DOS: 11/03/19 FINDINGS: Lines and Tubes: None Lungs: Clear Pleura: No effusion. No pneumothorax. Cardiomediastinal contours: Unremarkable Bones: Unremarkable IMPRESSION: 1. Clear lungs.
--- NOTE | 2024-09-02 02:52 | ECG ---
[facility] Test Date: 2024-09-02 Test Time: 02:49:28 Pat Name: MARCIAL GUTIERREZ Department: ED Room: [facility] Gender: F Vp Compliance: ROCIO : 1970 Requested By: DARYL AKINS Order Number: [id number] Reading MD: Edis Becker Measurements Intervals [place] Rate: 61 P: -56 ND: 194 QRS: -54 QRSD: 101 T: -76 QT: 501 QTc: 505 Interpretive Statements Sinus or ectopic atrial rhythm LAD, consider left anterior fascicular block Abnormal T, consider ischemia, diffuse leads Electronically Signed On 09-06-2024 8:55:42 PST by Edis Becker Please click the below link to view image of tracing.
[2024-09-02] MEDS: METOCLOPRAMIDE HCL 5MG/ml INJ 2ml VIAL IV ONE (03:20)
[2024-09-02 03:45] LABS: Amphetamine Screen, Urine Neg (NEGATIVE); Opiate Scree,Urine Neg (NEGATIVE)
[2024-09-02 03:59] LABS: Barbiturate Scree,Urine Neg (NEGATIVE); Benzodiazephine Screen, Urine Neg (NEGATIVE); Cannabinoid Screen, Urine Pos (NEGATIVE); Cocaine Screen, Urine Neg (NEGATIVE); Phencyclidine Screen, Urine Neg (NEGATIVE)
[2024-09-02 04:01] LABS: Urine Bacteria FEW /hpf (None Seen); Urine Blood Negative /uL (Negative); Urine Clarity Turbid (Clear); Urine Color Yellow (Yellow); Urine Hyaline Cast MANY /lpf (0 - 2); Urine Mucus FEW (None Seen); Urine Protein, UAD 1+ (Negative); Urine Specific Gravity 1.019 (1.001-1.035); Urine Urobilinogen Normal (Negative); Urine WBC 5 /hpf (0 - 5)
[2024-09-02 05:40] LABS: Basophils # (auto) 0 10 ^3/uL (0-0.2); Basophils % (auto) 0.3 % (0.0-2.0); Eosinophils # (auto) 0 10 ^3/uL (0-0.8); Hematocrit 48.2 % (36.0-46.0); Lymphocytes # (auto) 2.6 10 ^3/uL (0.4-5.4); Lymphocytes % (auto) 15.8 % (10.0-50.0); Mean Corpuscular Hemoglobin 30.3 pg (28.0-32.0); Mean Corpuscular Hgb Conc. 33.3 g/dL (32.0-36.0); Monocytes # (auto) 0.8 10 ^3/uL (0-1.3); Monocytes % (auto) 4.9 % (0.0-12.0); Neutrophils # (auto) 12.8 10 ^3/uL (1.6-8.6); Nucleated Red Blood Cells % 0.1 %; Platelet Count (auto) 330 10^3/uL (140-450); Red Blood Cells 5.29 10^6/uL (4.0-5.20); Red Cell Distribution Width 14.6 % (11.8-14.3); White Blood Cell 16.2 10^3/uL (4.4-10.8)
[2024-09-02] MEDS: PIPERACILLIN-TAZOB 2.25GM 50 ML IV ONE (09:24)
[2024-09-02] MEDS ORDERED: ACETAMINOPHEN 325 MG TAB PO PRN (09:30)
[2024-09-02] MEDS ORDERED: DEXTROSE (50%) 50ML SYRG IV PRN (09:30)
[2024-09-02] MEDS ORDERED: MORPHINE SULFATE INJ 2 MG/ml SYRG IV PRN (09:30)
--- NOTE | 2024-09-02 09:43 | DVHHP2 ---
History of Present Illness Reason for Visit: chest pain History of Present Illness 54-year-old obese patient with a history of depression, anxiety, hypertension, hyperlipidemia, and polysubstance abuse comes to the ED with complaints of chest pain shortness of breath and intermittent abdominal pain patient states that the symptoms are on and off continued to happen today the symptoms typically it worse when drinking or smoking patient on initial evaluation in the hospital was found to be slightly hypotensive patient states no other medication is use other than medications for statins which she no longer takes medications for PPIs she no longer takes and only the Wellbutrin that she takes for anxiety and depression patient was recommended for admission for further evaluation and continued care Cardiovascular: HTN, hyperipidemia Psych: Anxiety, Depression Review of Systems Constitutional: Yes: Weakness; No: Fever, Chills, Sweats, Malaise, Other Eyes: No: Pain, Vision change, Conjunctivae inflammation, Eyelid inflammation, Other, Redness ENT: No: Ear pain, Ear discharge, Nose pain, Nose discharge, Nose congestion, Mouth pain, Mouth swelling, Throat pain, Throat swelling, Other Respiratory: Cough, Shortness of breath; No: Dry, SOB with excertion, Wheezing, Hemoptysis, Pleuritic Pain, Sputum, Wheezing, Other Cardiovascular: Chest Pain, Palpitations; No: Orthopnea, Paroxysmal Noc. Dyspnea, Edema, Lt Headedness, Other Gastrointestinal: No: Nausea, Vomiting, Abdominal Pain, Diarrhea, Constipation, Melena, Hematochezia, Other Genitourinary: No Dysuria, No Frequency, No Incontinence, No Hematuria, No Retention, No Other Musculoskeletal: No: other, neck pain, shoulder pain, arm pain, back pain, hand pain, leg pain, foot pain Skin: No: Rash, Lesions, Jaundice, Bruising, Other Neurological: No: Weakness, Numbness, Incoordination, Change in speech, Confusion, Seizures, Other Allergies: Coded Allergies: NO KNOWN ALLERGIES (Unverified , 12/21/10) Medications Current Medications Medications Dose Ordered Sig/Isabel Route Start Time Stop Time Status Last Admin Dose Admin Norepinephrine Bitartrate 250 ml @ 3.75 mls/hr Q24H IV 09/02/24 09:15 Exam Vital Signs Vital Signs Date Time Temp Pulse Resp B/P (MAP) Pulse Ox O2 Delivery O2 Flow Rate FiO2 09/02/24 07:30 61 14 98 Room Air* 0 21 09/02/24 07:30 83/39 (54) 09/02/24 00:00 98.6 98.6 General Appearance: Alert, Oriented X3, No acute distress HEENT: Atraumatic, PERRLA Respiratory: Clear to auscultation, Normal air movement Cardiovascular: Regular rate, Normal S1 Abdominal: Normal bowel sounds, Soft Extremities: No clubbing, No cyanosis Skin: No rashes, No breakdown Neuro: Normal gait, Normal speech Psych/Mental Status: Mood NL Labs/Xrays Labs Test 09/02/24 05:25 09/02/24 03:16 09/02/24 02:00 09/01/24 23:48 Range/Units White Blood Count 16.2 #H 4.4-10.8 10^3/uL Red Blood Count 5.29 H 4.0-5.20 10^6/uL Hemoglobin 16.0 12.2-16.2 g/dL Hematocrit 48.2 H 36.0-46.0 % Mean Corpuscular Volume 91.0 80.0-100.0 fL Mean Corpuscular Hemoglobin 30.3 28.0-32.0 pg Mean Corpuscular Hemoglobin Concent 33.3 32.0-36.0 g/dL Red Cell Distribution Width 14.6 H 11.8-14.3 % Platelet Count 330 140-450 10^3/uL Mean Platelet Volume 6.6 L 6.9-10.8 fL Neutrophils (%) (Auto) 79.0 37.0-80.0 % Lymphocytes (%) (Auto) 15.8 10.0-50.0 % Monocytes (%) (Auto) 4.9 0.0-12.0 % Eosinophils (%) (Auto) 0.0 0.0-7.0 % Basophils (%) (Auto) 0.3 0.0-2.0 % Neutrophils # (Auto) 12.8 H 1.6-8.6 10 ^3/uL Lymphocytes # (Auto) 2.6 0.4-5.4 10 ^3/uL Monocytes # (Auto) 0.8 0-1.3 10 ^3/uL Eosinophils # (Auto) 0 0-0.8 10 ^3/uL Basophils # (Auto) 0 0-0.2 10 ^3/uL Nucleated Red Blood Cells 0.1 % Urine Color Yellow Yellow Urine Clarity Turbid H Clear Urine pH 6.0 5.0-9.0 Urine Specific [place] 1.019 1.001-1.035 Urine Protein 1+ H Negative Urine Ketones Negative Negative Urine Blood Negative Negative /uL Urine Nitrite Negative Negative Urine Bilirubin Negative Negative Urine Urobilinogen Normal Negative mg/dL Urine Leukocyte Esterase Negative Negative /uL Urine RBC 2 0 - 4 /hpf Urine WBC 5 0 - 5 /hpf Urine Squamous Epithelial Cells Few <5 /hpf Urine Bacteria Few H None Seen /hpf Urine Hyaline Casts Many 0 - 2 /lpf Urine Mucus Few None Seen Urine Glucose Normal Normal mg/dL Urine Opiates Screen Neg NEGATIVE Urine Fentanyl Screen Neg NEGATIVE Urine Barbiturates Screen Neg NEGATIVE Urine Phencyclidine Screen Neg NEGATIVE Urine Amphetamines Screen Neg NEGATIVE Urine Benzodiazepines Screen Neg NEGATIVE Urine Cocaine Screen Neg NEGATIVE Urine Cannabinoids Screen Pos NEGATIVE Troponin I High Sensitivity 8 </=34 ng/L Prothrombin Time 11.2 9.3-11.8 sec Prothrombin Time INR 1.06 0.9-1.15 Activated Partial Thromboplast Time 32.1 24.5-34.5 SEC Sodium Level 140 136-145 mmol/L Potassium Level 3.5 3.5-5.1 mmol/L Chloride Level 108 H 98-107 mmol/L Carbon Dioxide Level 21 20-31 mmol/L Anion Gap 11 5-15 Blood Urea Nitrogen 14 9-23 mg/dL Creatinine 2.08 H 0.550-1.02 mg/dL Glomerular Filtration Rate Calc 27 >90 mL/min BUN/Creatinine Ratio 6.7 L 10.0-20.0 Serum Glucose 142 H 74-106 mg/dL Calcium Level 10.8 H 8.7-10.4 mg/dL Magnesium Level 2.3 1.6-2.6 mg/dL Total Bilirubin 0.5 0.2-1.0 mg/dL Aspartate Amino Transferase (AST) 14 13-40 U/L Alanine Aminotransferase (ALT) 10 7-40 U/L Alkaline Phosphatase 83 46-116 U/L Total Protein 7.6 5.7-8.2 g/dL Albumin 4.7 3.2-4.8 g/dL Plasma/Serum Blood Alcohol < 3.0 <10 mg/dL Assessment/Plan Assessment/Plan Admit to [facility] Urinary tract infection with sepsis suspected IV hydration IV antibiotics Patient was severely hypotensive Abdominal pain believed to be secondary to acute infection at this point in time suspected pyelonephritis versus UTI cystitis Patient noted with severe leukocytosis Otherwise patient is hemodynamically stable Elevated creatinine in the setting of acute UTI continue with IV hydration CT abdomen and pelvis completed with no acute signs of other outlying conditions that could be considered severe The symptoms ordered in the ED We will continue Even with the patient having CHRISS Zosyn is not been clinically proven to show acute worsening signs renal failure we will continue Zosyn at this point in time No stated history of diabetes however patient has signs of hypoglycemia Insulin sliding scale while inpatient Patient morbidly obese BMI greater than 30 History of stated polysubstance abuse Patient is positive for cannabinoid use All other drugs and tox screens were negative History of depression/anxiety Patient takes Wellbutrin at home Recommendation that continue patient's home medication Continue with Ativan as per need for anxiety and agitation Plan discussed with: Patient My Orders Orders - TAHIRA JUAREZ MD Procedure Category Date Status Time Piperacillin-Tazob PHA 09/02/24 Logged 3.375gm (Zosyn 3.375g 09:30 Glucose Blood PHA 09/02/24 Logged (Accu-Chek Comfort 12:00 Insulin R (Human) PHA 09/02/24 Logged (Insulin R) 12:00 Dextrose 50% Syringe PHA 09/02/24 Logged 09:30 Admit ADMIT 09/02/24 Transmitted 09:16 Code Status CODE 09/02/24 Transmitted 09:16 Vital Signs [facility] 09/02/24 In Process 09:16 Review Orders With ADIN 09/02/24 In Process Adm. 09:16 Consistent DIET 09/02/24 Transmitted Carb(Ccho)Diabetes Breakfast Lorazepam Tablet PHA 09/02/24 Logged (Ativan Tablet) 09:30 Alum & Mag PHA 09/02/24 Logged Hydrox-Simethicone 09:30 Docusate Sodium PHA 09/02/24 Logged Capsule (Colace 09:30 Acetaminophen Tablet PHA 09/02/24 Logged (Tylenol Tablet) 09:30 Temazepam (Restoril) PHA 09/02/24 Logged 09:30 Notify Of Changes ADIN 09/02/24 In Process From Base 09:16 Advance Directive ADIN 09/02/24 In Process 09:16 Basic Metabolic Panel LAB 09/03/24 Verified 04:00 Complete Blood Count LAB 09/03/24 Verified 04:00 Urine Bacterial MARCOS 09/02/24 In Process Culture 09:16 Patient Condition ORDERS 09/02/24 Transmitted 09:16 Allergies ADIN 09/02/24 In Process 09:16 Hydrocodone-Acet PHA 09/02/24 Logged 5/325mg Tab ([place] 09:30 Ondansetron Hcl PHA 09/02/24 Logged (Zofran) 09:30 Morphine Sulfate PHA 09/02/24 Logged Injection 09:30 Notify Of Changes ADIN 09/02/24 In Process From Base 09:16 Sonar Subsystem Equipment Operator For ADIN 09/02/24 In Process 24 Hours 09:16 Oxygen By Nasal RT 09/02/24 Transmitted Cannula 09:16 Problem List: (1) Morbid obesity (2) Sepsis (3) Urinary tract infection (4) Leukocytosis (5) Acute kidney injury Date of Service: Sep 02, 2024 Billing Provider: TAHIRA JUAREZ MD Common Visit Codes: [id number] INP/OBS CARE (HIGH) TAHIRA JUAREZ MD Sep 02, 2024 09:43
[2024-09-02] MEDS: PROCHLORPERAZINE EDISYLATE 5 MG/ML 2ML VIAL IV ONE (11:06)
[2024-09-02] MEDS: NOREPINEPHRINE 8 MG/250ML KIT 250 ML IV SCH (11:06)
[2024-09-02] MEDS: HYDROcodone-ACET 5/325MG TAB PO PRN (11:11)
[2024-09-02] MEDS: ACCU-CHEK COMFORT CURVE STRIP VI SCH (11:11)
[2024-09-02] MEDS: InsuLIN REG 1unit/0.01ml Soln (100units/ml) SC SCH (11:12)
[2024-09-02] MEDS: ONDANSETRON HCL 4 MG/2 ML VIAL IV PRN (14:16)
[2024-09-02] MEDS: PIPERACILLIN-TAZOB 3.375GM 100 ML IV SCH (16:31)
[2024-09-02] MEDS: DOCUSATE SOD 100 MG CAP PO PRN (16:32)
[2024-09-02] MEDS: TEMAZEPAM 15 MG CAP PO PRN (22:20)
[2024-09-02] MEDS: MAALOX PLUS or MAALOX 30 ML PO PRN (22:37)
[2024-09-03 01:00] VITALS: BP 127/76; PULSE 55; RESP 20; TEMP 98.1; O2SAT 93
[2024-09-03 05:00] VITALS: BP 107/63; PULSE 63; RESP 18; TEMP 98.1; O2SAT 93
[2024-09-03 06:04] LABS: Basophils # (auto) 0 10 ^3/uL (0-0.2); Basophils % (auto) 0.1 % (0.0-2.0); Eosinophils # (auto) 0.1 10 ^3/uL (0-0.8); Hematocrit 41.7 % (36.0-46.0); Hemoglobin 14.1 g/dL (12.2-16.2); Lymphocytes # (auto) 4.9 10 ^3/uL (0.4-5.4); Lymphocytes % (auto) 47.5 % (10.0-50.0); Mean Corpuscular Hemoglobin 30.4 pg (28.0-32.0); Mean Corpuscular Hgb Conc. 33.8 g/dL (32.0-36.0); Mean Corpuscular Volume 89.9 fL (80.0-100.0); Monocytes # (auto) 0.9 10 ^3/uL (0-1.3); Monocytes % (auto) 8.8 % (0.0-12.0); Neutrophils # (auto) 4.4 10 ^3/uL (1.6-8.6); Neutrophils % (auto) 42.6 % (37.0-80.0); Nucleated Red Blood Cells % 0.1 %; Platelet Count (auto) 296 10^3/uL (140-450); Red Blood Cells 4.63 10^6/uL (4.0-5.20); Red Cell Distribution Width 15.1 % (11.8-14.3); White Blood Cell 10.3 10^3/uL (4.4-10.8)
[2024-09-03 06:19] LABS: Sodium 143 mmol/L (136-145)
[2024-09-03 06:20] LABS: Anion Gap 8 (5-15); Calcium 9.4 mg/dL (8.7-10.4); Carbon Dioxide 25 mmol/L (20-31)
[2024-09-03 06:25] LABS: BUN/Creatinine Ratio 9.9 (10.0-20.0); Blood Urea Nitrogen 10 mg/dL (9-23); Glucose 93 mg/dL (74-106)
[2024-09-03 06:26] LABS: Chloride 110 mmol/L (98-107); Potassium 3.4 mmol/L (3.5-5.1)
[2024-09-03 09:00] VITALS: BP 127/54; PULSE 60; RESP 20; TEMP 98; O2SAT 95
[2024-09-03] MEDS ORDERED: OLAN1TAB19 PO (11:25)
[2024-09-03] MEDS ORDERED: CLON0.5T4 PO (11:25)
--- NOTE | 2024-09-03 11:33 | DVHPN2 ---
Subjective Patient reports that her symptoms are better. Reviewed: Care Plan, H&P, Labs, Medications Changes from previous H/P or p: Changes Eyes: No Pain, No Vision change, No Conjunctivae inflammation, No Eyelid inflammation, No Other, No Redness ENT: No Ear pain, No Ear discharge, No Nose pain, No Nose discharge, No Nose congestion, No Mouth pain, No Mouth swelling, No Throat pain, No Throat swelling, No Other Cardiovascular: Chest Pain, Palpitations; No Orthopnea, No Paroxysmal Noc. Dyspnea, No Edema, No Lt Headedness, No Other Respiratory: Cough; No Dry; Shortness of breath; No SOB with excertion, No Wheezing, No Hemoptysis, No Pleuritic Pain, No Sputum, No Other Gastrointestinal: No Nausea, No Vomiting, No Abdominal Pain, No Diarrhea, No Constipation, No Melena, No Hematochezia, No Other Genitourinary: No Dysuria, No Frequency, No Incontinence, No Hematuria, No Retention, No Other Musculoskeletal: No other, No neck pain, No shoulder pain, No arm pain, No back pain, No hand pain, No leg pain, No foot pain Skin: No Rash, No Lesions, No Jaundice, No Bruising, No Other Objective Vitals Vital Signs Date Time Temp Pulse Resp B/P (MAP) Pulse Ox O2 Delivery O2 Flow Rate FiO2 09/03/24 09:00 98.0 60 20 127/54 (78) 95 98.0 09/03/24 08:00 Room Air* 0 21 Intake/Output Intake and Output 09/03/24 07:00 Intake Total 1200 ml Output Total 400 ml Balance 800 ml Intake Oral 700 ml IV Total 500 ml Output Urine Total 400 ml Stool Total 0 ml # Voids 1 General Appearance: Alert, Oriented X3, Cooperative, No acute distress HEENT: Atraumatic, PERRLA Cardiovascular: Normal S1, Normal S2 Abdomen: Normal bowel sounds, Soft, No tenderness, No hepatospenomegaly Genitourinary: No Apparent Abnormalities Back: Flank Tenderness, Midline Tenderness Musculoskeletal: Normal sensory function, Normal motor function Neuro: Normal gait, Normal speech Psych/Mental Status: Mental status NL, Mood NL Medications Current Medications Medications Dose Ordered Sig/Isabel Route Start Time Stop Time Status Last Admin Dose Admin Piperacillin Sod/ Tazobactam Sod 100 ml @ 100 mls/hr Q8H IV 09/02/24 17:00 09/03/24 09:04 100 MLS/HR Diagnostic Test (Pha) 1 strip IQ4HR 09/02/24 12:00 09/03/24 08:15 1 STRIP Insulin Human Regular IQ4HR SC 09/02/24 12:00 Dextrose 50 ml UD PRN IV 09/02/24 09:30 Lorazepam 0.5 mg Q6HP PRN PO 09/02/24 09:30 Al Hydrox/Mg Hydrox/Simethicone 30 ml Q6HP PRN PO 09/02/24 09:30 09/02/24 22:37 30 ML Docusate Sodium 100 mg BIDPRN PRN PO 09/02/24 09:30 09/02/24 16:32 100 MG Acetaminophen 650 mg Q6HP PRN PO 09/02/24 09:30 Temazepam 15 mg QHSP PRN PO 09/02/24 09:30 09/02/24 22:20 15 MG Acetaminophen/ Hydrocodone Bitart 1 tab Q4HP PRN PO 09/02/24 09:30 09/02/24 20:56 1 TAB Ondansetron HCl 4 mg Q4HP PRN IV 09/02/24 09:30 09/02/24 14:16 4 MG Morphine Sulfate 2 mg Q4HPRN PRN IV 09/02/24 09:30 Laboratory Results Laboratory Tests 09/03/24 05:28 Chemistry Test 09/03/24 05:28 Calcium Level 9.4 mg/dL (8.7-10.4) Urinalysis Test 09/02/24 03:16 Urine Color Yellow (Yellow) Urine Clarity Turbid (Clear) H Urine pH 6.0 (5.0-9.0) Urine Specific [place] 1.019 (1.001-1.035) Urine Protein 1+ (Negative) H Urine Ketones Negative (Negative) Urine Blood Negative /uL (Negative) Urine Nitrite Negative (Negative) Urine Bilirubin Negative (Negative) Urine Urobilinogen Normal mg/dL (Negative) Urine Leukocyte Esterase Negative /uL (Negative) Urine RBC 2 /hpf (0 - 4) Urine WBC 5 /hpf (0 - 5) Urine Squamous Epithelial Cells Few /hpf (<5) Urine Bacteria Few /hpf (None Seen) H Urine Hyaline Casts Many /lpf (0 - 2) Urine Mucus Few (None Seen) Urine Glucose Normal mg/dL (Normal) Microbiology Microbiology Date/Time Source Procedure Growth Status 09/02/24 03:16 Voided Urine Urine Culture - Preliminary Resulted Labs and/or images reviewed: Labs reviewed by me, Image(s) reviewed by me Assessment/Plan Assessment/Plan Impression: -sepsis secondary to complicated cystitis -complicated cystitis -anxiety and depression disorder, questionable history of schizophrenia given medication reconciliation -obesity -cannabinoid abuse Plan: -patient clinically improved. Given sepsis, patient will be kept one more night and given an additional 24 hours of IV antibiotic therapy. -urine culture, pending -restart home medications -pain management -repeat labs in a.m. Total time spent with patient discussing and formulating plan of care: 35 minutes. This medical document was created using an electronic medical record system with [employer] dictation system. Although this document has been carefully reviewed, there may still be some phonetic and typographical errors. These areas are purely typographical due to imperfections of the software programs, and do not reflect any compromise in the patient's medical care. Plan discussed with: Patient, Other (RN) My Orders Orders - ELVER BRISCOE NP Procedure Category Date Status Time Ns W Potassium 40meq PHA 09/03/24 Transmitted 11:30 Date of Service: Sep 03, 2024 Billing Provider: ELVER BRISCOE NP Common Visit Codes: [id number] INP/OBS CARE(HIGH) ELVER BRISCOE NP Sep 03, 2024 11:33
[2024-09-03] MEDS: SOD CHL 0.9%/ KCL 40MEQ 1,000 ML IV ONE (12:05)
[2024-09-03 12:35] VITALS: BP 159/60; PULSE 59; RESP 20; TEMP 98; O2SAT 94
[2024-09-03] MEDS ORDERED: PROC10TA6 PO (16:29)
[2024-09-03] MEDS ORDERED: TRAM100T32 PO (16:29)
[2024-09-03] MEDS ORDERED: ATOR40TA52 PO (16:29)
[2024-09-03] MEDS ORDERED: IBUP-1456 PO (16:29)
[2024-09-03] MEDS ORDERED: METH-1182 PO (16:29)
[2024-09-03] MEDS ORDERED: BUPR75TA96 PO (16:29)
[2024-09-03] MEDS ORDERED: SEMA1INJ SC (16:29)
[2024-09-03] MEDS ORDERED: HYDR-4798 PO (16:29)
[2024-09-03] MEDS ORDERED: OMEP-448 PO (16:29)
[2024-09-03] MEDS ORDERED: HYDR50TA69 PO (16:29)
[2024-09-03] MEDS ORDERED: ERGO500086 PO (16:29)
[2024-09-03 16:54] VITALS: BP 111/75; PULSE 60; RESP 18; TEMP 98.1; O2SAT 93
[2024-09-03 21:00] VITALS: BP 162/67; PULSE 51; RESP 18; TEMP 97.9; O2SAT 95
[2024-09-04] MEDS: LORazepam 0.5 MG TAB PO PRN (00:37)
[2024-09-04] MEDS: diphenhdrAMINE HCL 25 MG CAP PO ONE (02:27)
[2024-09-04 05:00] VITALS: BP 135/60; PULSE 60; RESP 17; TEMP 98; O2SAT 93
[2024-09-04 09:00] VITALS: BP 120/53; PULSE 60; RESP 18; TEMP 98.1; O2SAT 95
[2024-09-04 12:59] VITALS: BP 147/79; PULSE 59; RESP 18; TEMP 97.8; O2SAT 97
[2024-09-04] MEDS ORDERED: AUG875T PO (13:44)
--- NOTE | 2024-09-04 13:46 | DVHDS2 ---
Discharge Summary Date of Admission Sep 02, 2024 at 09:16 Date of Discharge: Sep 04, 2024 Admitting Diagnosis -sepsis secondary to complicated cystitis -complicated cystitis -anxiety and depression disorder, questionable history of schizophrenia given medication reconciliation -obesity -cannabinoid abuse Labs/Diagnostic Data: Laboratory Results Test 09/04/24 05:25 09/04/24 05:14 09/03/24 05:28 09/02/24 03:16 Creatinine 0.97 mg/dL (0.550-1.02) Glomerular Filtration Rate Calc 69 mL/min (>90) POC Glucose 115 mg/dl (70-106) White Blood Count 10.3 10^3/uL (4.4-10.8) Red Blood Count 4.63 10^6/uL (4.0-5.20) Hemoglobin 14.1 g/dL (12.2-16.2) Hematocrit 41.7 % (36.0-46.0) Mean Corpuscular Volume 89.9 fL (80.0-100.0) Mean Corpuscular Hemoglobin 30.4 pg (28.0-32.0) Mean Corpuscular Hemoglobin Concent 33.8 g/dL (32.0-36.0) Red Cell Distribution Width 15.1 % (11.8-14.3) Platelet Count 296 10^3/uL (140-450) Mean Platelet Volume 6.6 fL (6.9-10.8) Neutrophils (%) (Auto) 42.6 % (37.0-80.0) Lymphocytes (%) (Auto) 47.5 % (10.0-50.0) Monocytes (%) (Auto) 8.8 % (0.0-12.0) Eosinophils (%) (Auto) 1.0 % (0.0-7.0) Basophils (%) (Auto) 0.1 % (0.0-2.0) Neutrophils # (Auto) 4.4 10 ^3/uL (1.6-8.6) Lymphocytes # (Auto) 4.9 10 ^3/uL (0.4-5.4) Monocytes # (Auto) 0.9 10 ^3/uL (0-1.3) Eosinophils # (Auto) 0.1 10 ^3/uL (0-0.8) Basophils # (Auto) 0 10 ^3/uL (0-0.2) Nucleated Red Blood Cells 0.1 % Sodium Level 143 mmol/L (136-145) Potassium Level 3.4 mmol/L (3.5-5.1) Chloride Level 110 mmol/L (98-107) Carbon Dioxide Level 25 mmol/L (20-31) Anion Gap 8 (5-15) Blood Urea Nitrogen 10 mg/dL (9-23) BUN/Creatinine Ratio 9.9 (10.0-20.0) Serum Glucose 93 mg/dL (74-106) Calcium Level 9.4 mg/dL (8.7-10.4) Urine Color Yellow (Yellow) Urine Clarity Turbid (Clear) Urine pH 6.0 (5.0-9.0) Urine Specific [place] 1.019 (1.001-1.035) Urine Protein 1+ (Negative) Urine Ketones Negative (Negative) Urine Blood Negative /uL (Negative) Urine Nitrite Negative (Negative) Urine Bilirubin Negative (Negative) Urine Urobilinogen Normal mg/dL (Negative) Urine Leukocyte Esterase Negative /uL (Negative) Urine RBC 2 /hpf (0 - 4) Urine WBC 5 /hpf (0 - 5) Urine Squamous Epithelial Cells Few /hpf (<5) Urine Bacteria Few /hpf (None Seen) Urine Hyaline Casts Many /lpf (0 - 2) Urine Mucus Few (None Seen) Urine Glucose Normal mg/dL (Normal) Urine Opiates Screen Neg (NEGATIVE) Urine Fentanyl Screen Neg (NEGATIVE) Urine Barbiturates Screen Neg (NEGATIVE) Urine Phencyclidine Screen Neg (NEGATIVE) Urine Amphetamines Screen Neg (NEGATIVE) Urine Benzodiazepines Screen Neg (NEGATIVE) Urine Cocaine Screen Neg (NEGATIVE) Urine Cannabinoids Screen Pos (NEGATIVE) Test 09/02/24 02:00 09/01/24 23:48 Troponin I High Sensitivity 8 ng/L (</=34) Prothrombin Time 11.2 sec (9.3-11.8) Prothrombin Time INR 1.06 (0.9-1.15) Activated Partial Thromboplast Time 32.1 SEC (24.5-34.5) Magnesium Level 2.3 mg/dL (1.6-2.6) Total Bilirubin 0.5 mg/dL (0.2-1.0) Aspartate Amino Transferase (AST) 14 U/L (13-40) Alanine Aminotransferase (ALT) 10 U/L (7-40) Alkaline Phosphatase 83 U/L (46-116) Total Protein 7.6 g/dL (5.7-8.2) Albumin 4.7 g/dL (3.2-4.8) Plasma/Serum Blood Alcohol < 3.0 mg/dL (<10) Other Laboratory Tests 09/04/24 05:25 09/03/24 05:28 Brief Hx & Hospital Course: This is a 54 years old patient with history of depression, anxiety, hypertension, hyperlipidemia, polysubstance abuse came to ER with chief complains of chest pain shortness of breath and intermittent abdominal pain . The patient was found to have complicate cystitis and was treat with IV antibiotic Zosyn 3.375gm IV q 8 hours. Urine culture show contaminate. Patient is doing better today, no nausea/vomiting. No abdominal pain, no chest pain. Trop is normal. I am going to dc patient home. Advice patient to follow up with PCP 1-2 weeks. Follow up with her psychiatrist per schedule. Activity as tolerate, diet per home diet. Physical exam: HEENT: Normocephalic atraumatic pupils equal react to light and accommodation. Extraocular muscles intact, conjunctiva pink, oropharynx moist, no thrush, no exudate. Lymphatic: No lymphadenopathy Cardiovascular exam: S1, S2 was heard. No murmurs, rubs, gallops Lung: Clear on auscultation bilaterally, no wheeze, rale, rhonchi. GI: Abdominal soft, nondistended, nontenderness, positive bowel sounds. Extremity: No crepitus, cyanosis, edema. Pedal pulses present bilateral. Full range of motion. Skin: Normal turgor, no rash. Psych: Alert, oriented x3. Neurology: No focal deficits, cranial nerve II to XII grossly intact. This medical document was created using an electronic medical record system with [employer] computerized dictation system. Although this document has been carefully reviewed, there may still be some phonetic and typographical errors. These areas are purely typographical due to imperfections of the software programs, and do not reflect any compromise in the patient's medical care. Condition at Discharge: Stable Final Diagnosis/Problems List -sepsis secondary to complicated cystitis -complicated cystitis -anxiety and depression disorder, questionable history of schizophrenia given medication reconciliation -obesity -cannabinoid abuse Discharge Disposition: Home Discharge Instruct/Medications Diet: Cardiac 2g Na,low cholest Activity: No Restrictions, As Tolerated Follow Up/Referral: pcp 1-2 weeks Medications: Resume home meds Augmentin 875/125 bid x 7 days Discharge Statement: "Patient was advised to return to the ER or call 911 if any headaches, dizziness, shortness of breath, chest pain, abdominal pain, bleeding, fevers, or worsening of medical condition. Patient was counseled about treatment plan, medications, possible side effects, patientverbalized understanding. All questions were answered to the best of my ability. This discharge took greater then 30 minutes in planning, reviewing documentation, counseling the patient, and discussing with other team members." ASSESSMENT ASSESSMENT Assessment UTI Date of Service: Sep 04, 2024 Billing Provider: CELSO JUAREZ MD Common Visit Codes: [id number] DISCH DAY >30min CELSO JUAREZ MD Sep 04, 2024 13:46
== END 2024-09-04 15:30 | disposition home or self-care (01) | DRG 871 ==
LOC: EDBD 23:15 → ER 23:15 → OVERFLOW 09-02 09:16 → EAST 09-02 14:25
PROVIDERS: ADMIT Hospitalist; ATTEND Nurse Practitioner Acute Care
DX: A41.9 Sepsis, unspecified organism (principal); N17.0 Acute kidney failure with tubular necrosis; N30.90 Cystitis, unspecified without hematuria; E66.01 Morbid (severe) obesity due to excess calories; F12.10 Cannabis abuse, uncomplicated; F17.210 Nicotine dependence, cigarettes, uncomplicated; E78.5 Hyperlipidemia, unspecified; I10 Essential (primary) hypertension; F20.9 Schizophrenia, unspecified; F32.A Depression, unspecified; F41.9 Anxiety disorder, unspecified; I95.9 Hypotension, unspecified; Z68.37 Body mass index [BMI] 37.0-37.9, adult; Z79.899 Other long term (current) drug therapy
CPT/HCPCS: 36415; 82565; 82962; 96361; 96365; 96375; 99291; G0378; J2405; J2543